=== PATIENT | female | born 2005 | race Caucasian/White ===

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

== ENCOUNTER 2025-01-27 20:00 | Inpatient (IN) | payer OTHER, MEDICAID, SELFPAY ==
[2025-01-27] VITALS (7 sets, daily range): BP systolic 114–151; BP diastolic 65–94; PULSE 78–85; RESP 16; TEMP 36.7; BMI 28.1
[2025-01-27 20:17] LABS: PCP Screen Urine Negative (Negative)
[2025-01-27 20:30] LABS: Hematocrit 35.7 % (36-47); Hemoglobin 11.10 g/dL (12.4-14.8); Mean Corpuscular HGB Conc 31.1 g/dL (30-55); Mean Corpuscular Hemoglobin 24.8 pg (27-33); Mean Corpuscular Volume 79.9 fl (85-98); Nucleated Red Blood Cells % 0.2 %; Platelet Count 241 10^3/cmm (157-399); Red Blood Count 4.47 10^6/uL (3.85-5.65); White Blood Count 12.10 10^3/uL (4.5-13.0)
[2025-01-28] VITALS (55 sets, daily range): BP systolic 106–169; BP diastolic 52–97; PULSE 66–123; RESP 16–18; TEMP 36.3–36.9; O2SAT 97–100
[2025-01-28] MEDS: ROPivacaine premix 200 MG/100 ML PREMIX 13 MG EPIDURAL (07:36)
--- NOTE | 2025-01-28 08:02 | ANES.PREANE2 ---
Pre-Anesthetic Assessment Height/Weight: Height 1.52 m Weight 65.317 kg Temp Pulse Resp BP Pulse Ox O2 Del Method 97.3 F L 73 18 145/87 100 Room Air 01/28/25 04:36 01/28/25 07:53 01/28/25 04:36 01/28/25 07:53 01/28/25 07:29 01/27/25 19:57 Preop Diagnosis: IUP Epidural Familial anesthetic complications: none Exam alert, oriented x 3, clear to auscultation bilaterally and regular rate & rhythm Anesthetic Plan ASA status: 2 Anesthesia: Regional (specify below) Risk of > 500 ml blood loss (7ml/kg in children): Yes, adequate IV access and fluids planned Medications/Allergies Home Medications ?Medication ?Instructions ?Recorded ?Confirmed ?Last Taken ?Type no.58-iron bisglycinate 1 cap PO DAILY 10/24/24 01/27/25 01/24/25 History 10 mg iron-folic acid 400 mcg capsule Allergies Allergy/AdvReac Type Severity Reaction Status Date / Time Penicillins Allergy ALGY-Rash Verified 01/27/25 20:07 Current Medications Generic Name Dose Route Start Last Admin Trade Name Freq PRN Reason Stop Dose Admin Acetaminophen 650 mg 01/27/25 19:51 01/28/25 03:13 Acetaminophen 325 Mg Tablet PO 650 mg Q6H PRN Administration Mild pain or temp > 100.4 Hydroxyzine Pamoate 50 mg 01/27/25 19:51 01/28/25 07:45 Hydroxyzine 25 Mg Capsule PO 50 mg QID PRN Administration sleep, agitation or itching Dextrose/Lactated Ringer's 1,000 mls @ 125 mls/hr 01/27/25 20:00 01/28/25 06:24 Dextrose 5%-Lactated Ringers IV Infused .Q8H ANITA Infusion Ropivacaine 200 mg in 100 mls @ 10 mls/hr 01/28/25 06:00 01/28/25 07:36 Naropin Premix EPIDURAL 13 mls/hr .Q10H ANITA Administration Sodium Chloride 1,000 mls @ 999 mls/hr 01/28/25 06:06 01/28/25 07:42 Sodium Chloride 0.9% IV 125 mls/hr .Q1H1M PRN Infusion See label comments PFSH Anesthesia Social History Smoking and tobacco/nicotine status: never used tobacco/nicotine Alcohol intake: never Substance/Drug Use: never Adopted: No Sexually active: No Do you think of yourself as: Straight/Heterosexual Current gender identity: Female Female Reproductive History : 2 Data Anesthesia 01/27/25 20:20 Short CBC 01/27/25 Range/Units 20:20 WBC 12.10 (4.5-13.0) 10^3/uL Hgb 11.10 L (12.4-14.8) g/dL Hct 35.7 L (36-47) % MCV 79.9 L (85-98) fl Plt Count 241 (157-399) 10^3/cmm Neut % (Auto) 69.4 % Neut # (Auto) 8.38 H (1.8-8.0) 10^3/uL Blood Bank 01/27/25 20:20 Blood Type O Positive Rho(D) Type Rh positive Antibody Screen Negative Anesthesia Procedures Epidural Time Out Performed: Yes Consents Signed: Procedure Consent Consent: requested by attending/covering physician, from patient, from other, risks and benefits reviewed and patient agrees to proceed Lumbar Level: L3-L4 Epidural position: sitting Epidural procedure: sterile prep of area, 1% lidocaine to numb the area, 18 g needle, negative for paresthesia passed, neg for paresthesia, test dose given, 1.5% xylocaine 1:200k epi (5), 0.2% Ropivacaine bolus ml (5), placed PCEA, no systemic response, sterile dressing applied, L.U.D. no apparent complications and 0.2% Ropiavacaine @ mls/hr (13)
[2025-01-28] MEDS: oxytocin 30 UNIT/500 ML BAG IV (12:07)
--- NOTE | 2025-01-28 13:12 | PM.OPHPUD ---
Labor & Delivery H&P Update Date of Procedure: January 28, 2025 Date H&P Performed: 01/24/25 Admission Diagnosis: IUP at 40 weeks 3 days gestation Preop diagnosis: IUP Primary indication for procedure: Postdate induction Planned procedure: Induction of labor and delivery
--- NOTE | 2025-01-28 13:12 | PM.DELIVERY ---
Delivery Note: Date of delivery: January 28, 2025 Estimated blood loss (mL): 200 Pre-Delivery Course: The patient had routine care at [facility]. There were no complications during the . labs: Blood type O+ antibody negative, hepatitis B nonreactive, hepatitis C nonreactive, HIV nonreactive, rubella immune, GC chlamydia negative, RPR nonreactive, Q anup low risk, she failed her 1 hour but passed her 3-hour glucose tolerance test, she was positive for GBS. Post-Delivery Status: This is a 19-year-old G1, P0 at 40 weeks 3 days gestation who was admitted for postdate induction. Her cervix was not favorable so she was started on Cytotec. She was GBS positive ampicillin allergic so she received vancomycin. She received 2 doses of vancomycin prior to delivery. Her cervix had not made any change so she was given a second dose of Cytotec after which she went into active labor. She received an epidural for pain management. When she was complete complete and ready to push her contractions were very spaced out by 5 to 7 minutes so Pitocin was initiated to bring them closer together. She had a normal spontaneous vaginal delivery of a viable male weight 3380 g, 7 pounds 7 ounces, Apgars 4 and 9 over an intact perineum. The infant was suctioned at delivery and placed on mother's chest. The infant was stunned. The cord was immediately clamped and cut and he was taken over to the warmer. He was suctioned of clear fluid and given a couple puffs of PPV to initiate respirations at which point he came around nicely. Mother had a very small third-degree that was sutured using 3-0 Vicryl interrupted. The second-degree laceration was then sutured using 3-0 chromic in a running fashion. Mother and infant were doing well after delivery. A&P Assessment and plan 1. Normal spontaneous vaginal delivery: PDMP PDMP Reviewed: Not Reviewed Coding Level of Care Code Acute Code for Chg Fwd Diagnoses Normal spontaneous vaginal delivery O80
[2025-01-28] MEDS: benzocaine-menthol 78 gm Canister 1 SPRAY TOPICAL (14:25)
[2025-01-29 01:21] LABS: Hematocrit 33.6 % (36-47); Hemoglobin 10.30 g/dL (12.4-14.8); Mean Corpuscular HGB Conc 30.7 g/dL (30-55); Mean Corpuscular Hemoglobin 24.8 pg (27-33); Mean Corpuscular Volume 81.0 fl (85-98); Platelet Count 229 10^3/cmm (157-399); Red Blood Count 4.15 10^6/uL (3.85-5.65); White Blood Count 20.00 10^3/uL (4.5-13.0)
[2025-01-29] MEDS: PRENATAL VIT NO.130/IRON/FOLIC 1 EACH TABLET PO (05:37)
[2025-01-29 05:45] VITALS: BP 124/81; PULSE 79; RESP 16; TEMP 36.7
[2025-01-29 10:07] VITALS: BP 134/86; PULSE 84; RESP 16; TEMP 36.4
--- NOTE | 2025-01-29 12:44 | PM.DCS ---
Discharge Providers Date of Admission: 01/27/25 20:00 Date of Discharge: January 29, 2025 Attending Provider at Admission: Italia Pérez MD Attending Provider at Discharge: Italia Pérez MD Primary Care Provider: AMAN [place] Diagnoses at Discharge Discharge Diagnosis 1. Normal spontaneous vaginal delivery: Reason for Visit Reason for Visit: IOL Hospital Course Hospital Course This is a 19-year-old G1 now P1 who had a normal spontaneous vaginal delivery of a viable male infant at 40 weeks 3 days gestation. Mother has done well . Did have a very small third-degree laceration. She is ambulating, tolerating a regular diet, has decreased vaginal bleeding and is comfortable with discharge home. Physical Exam Narrative: Alert and oriented, laying in bed with 2 other family members, heart regular rate and rhythm, lungs clear to auscultation bilaterally, abdomen is soft and nontender, fundus is firm, extremities have trace edema but no calf tenderness Urinary Catheter Management: Herrera: Cath Placed During This Visit: yes, but has since been removed by the nurse Reason for Continuing Indwelling Catheter: Decision to DC Catheter Urinary Catheter Date of Insertion: 01/28/25 Urinary Catheter Time of Insertion: 08:10 Date Urinary Catheter Removed: 01/28/25 Time Urinary Catheter Discontinued: 11:45 Discharge Data Studies Completed and Pending Laboratory Results WBC 20.00 10^3/uL (4.5-13.0) H 01/29/25 00:50 RBC 4.15 10^6/uL (3.85-5.65) 01/29/25 00:50 Hgb 10.30 g/dL (12.4-14.8) L 01/29/25 00:50 Hct 33.6 % (36-47) L 01/29/25 00:50 MCV 81.0 fl (85-98) L 01/29/25 00:50 MCH 24.8 pg (27-33) L 01/29/25 00:50 MCHC 30.7 g/dL (30-55) 01/29/25 00:50 RDW 16.9 % (12.1-15.1) H 01/29/25 00:50 Plt Count 229 10^3/cmm (157-399) 01/29/25 00:50 MPV 10.6 fL (7.4-10.4) H 01/29/25 00:50 Neut % (Auto) 69.4 % 01/27/25 20:20 Lymph % (Auto) 21.8 % 01/27/25 20:20 [place] % (Auto) 7.4 % 01/27/25 20:20 Eos % (Auto) 0.3 % 01/27/25 20:20 Baso % (Auto) 0.3 % 01/27/25 20:20 Neut # (Auto) 8.38 10^3/uL (1.8-8.0) H 01/27/25 20:20 Lymph # (Auto) 2.6 10^3/uL (1.5-6.5) 01/27/25 20:20 [place] # (Auto) 0.9 10^3/uL (0.2-0.9) 01/27/25 20:20 Eos # (Auto) 0.0 10^3/uL (0.0-0.8) 01/27/25 20:20 Baso # (Auto) 0.0 10^3/uL (0.0-0.1) 01/27/25 20:20 Nucleated RBC % (auto) 0.2 % 01/27/25 20:20 Nucleated RBCs # 0.0 /100WBC 01/27/25 20:20 Urine Opiates Screen Negative ng/mL (Negative) 01/27/25 20:00 Ur Barbiturates Screen Negative ng/mL (Negative) 01/27/25 20:00 Ur Phencyclidine Scrn Negative ng/mL (Negative) 01/27/25 20:00 Ur Amphetamines Screen Negative ng/mL (Negative) 01/27/25 20:00 U Benzodiazepines Scrn Negative ng/mL (Negative) 01/27/25 20:00 Urine Cocaine Screen Negative ng/mL (Negative) 01/27/25 20:00 U Marijuana (THC) Screen Negative ng/mL (Negative) 01/27/25 20:00 Blood Type O Positive 01/27/25 20:20 Rho(D) Type Rh positive 01/27/25 20:20 Antibody Screen Negative 01/27/25 20:20 Vitals Last Vital Signs Temp 97.6 F 01/29/25 10:07 Pulse 84 01/29/25 10:07 Resp 16 01/29/25 10:07 BP 134/86 01/29/25 10:07 Pulse Ox 98 01/28/25 21:15 O2 Del Method Room Air 01/29/25 10:07 Discharge Plan Discharge Patient Disposition: Home Condition: Stable Prescriptions: Continued PNV no.58-iron bisgly-folic ac 10-400 mg-mcg Capsule 1 cap PO DAILY Discharge Order = DC NOW: Discharge Order (Routine); Ordered 01/29/25 Ordered By: Italia Pérez Referrals: Italia Pérez MD [Physician, Family Practice] - 1 month Discharge Diet: Usual diet Discharge Activity: Limit activity as instructed Patient Instructions: Opioid Safety, Patient Portal & Luis A Instructions Activity Restrictions/Additional Instructions: Nothing per vagina for 6 weeks Discharge Attestations Time Spent in Discharge Care*: less than 30 min Quality Metrics Clinical Quality Measures [ No reported AMI, CVA or VTE this stay] Coding Level of Care Code Acute Code for Chg Fwd Diagnoses Normal spontaneous vaginal delivery O80
--- NOTE | 2025-01-29 14:55 | ANE.PACU2 ---
Inpatient post-anesthesia follow up: Airway intact: Yes Vital signs: Temperature 97.6 F Pulse Rate 84 Respiratory Rate 16 Blood Pressure 134/86 Pulse Oximetry 98 Oxygen Delivery Me thod Room Air Oxygen Flow Rate Fraction of Inspir ed Oxygen Hydration adequate: Yes Nausea and vomiting: No Pain level: 1 Mental status: Baseline Epidural Start/End: Epidural Start Date: 01/28/25 Epidural Start Time: 07:11 Epidural End Date: 01/28/25 Epidural End Time: 13:12
[2025-01-29 15:00] VITALS: BP 134/82; PULSE 97; RESP 16; TEMP 36.6; O2SAT 98
== END 2025-01-29 15:40 | disposition home or self-care (01) | DRG 768 ==
LOC: OBGYN 21:49 → OPOB 01-29 07:33
PROVIDERS: Admitting Provider Family Medicine; PCP Registered Nurse; Visit Provider Family Medicine
DX: O48.0 Post-term pregnancy (principal); Z37.0 Single live birth; O70.20 Third degree perineal laceration during delivery, unspecified; Z3A.40 40 weeks gestation of pregnancy; O99.824 Streptococcus B carrier state complicating childbirth
CPT/HCPCS: 36415; 51702; 59025; 59409; 80306; 85025; 85027; 86850; 86900; 99211; J2590; J2795; J3373; J7030; J7050; J7121; J9999